=== PATIENT | female | born 1970 | race Hispanic/Latino ===

== ENCOUNTER 2018-07-03 09:13 | Emergency (ER) | payer OTHER, SELFPAY ==
--- NOTE | 2018-07-03 10:28 | EDPHYS ---
Physician Documentation [facility] Name: Carlene Powers Age: 47 yrs Sex: Female : 1970 Arrival Date: 07/03/2018 Time: 09:16 Bed 14 Private MD: To Cummins ED Physician Kelechi Byrd HPI: 07/03 09:35 This 47 yrs old Female presents to ER via Ambulatory with complaints of Back rn Pain. 09:35 The patient presents with pain that is acute. The symptoms are located in the low back. rn Onset: The symptoms/episode began/occurred yesterday. The pain radiates to the right leg and left leg. The problem was sustained from unknown cause. Modifying factors: The patient symptoms are alleviated by specific position, the patient symptoms are aggravated by any movement. Severity of symptoms: At their worst the symptoms were moderate, in the emergency department the symptoms are unchanged. The patient has not experienced similar symptoms in the past. 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 Worse with twisting, pressure, movement. . Historical: - Allergies: 09:25 No Known Allergies; ss - Home Meds: 09:25 metformin 500 mg oral tr24 2 tabs twice a day [Active]; Paxil 20 mg Oral tab 1 tab once ss daily [Active]; Xanax 0.5 mg Oral tab as needed [Active]; Victoza 1.2 daily [Active]; - PMHx: 09:25 Diabetes - NIDDM; ss - PSHx: 09:25 Cholecystectomy; ss - Immunization history:: Adult Immunizations up to date. - Social history:: Smoking status: Patient/guardian denies using tobacco. - Ebola Screening: : Patient denies exposure to infectious person Patient denies travel to an Ebola-affected area in the 21 days before illness onset. - Family history:: not pertinent. - Hospitalizations: : No recent hospitalization is reported. ROS: 09:35 Constitutional: Negative for fever, chills, and weight loss, Eyes: Negative for injury, rn pain, redness, and discharge, Neck: Negative for injury, pain, and swelling, Cardiovascular: Negative for chest pain, palpitations, and edema, Respiratory: Negative for shortness of breath, cough, wheezing, and pleuritic chest pain, Abdomen/GI: Negative for abdominal pain, nausea, vomiting, diarrhea, and constipation, Back: + low back pain, no injury : Negative for injury, bleeding, discharge, and swelling, MS/Extremity: Negative for injury and deformity, Skin: Negative for injury, rash, and discoloration, Neuro: Negative for headache, weakness, numbness, tingling, and seizure. Exam: 09:35 Constitutional: This is a well developed, well nourished patient who is awake, alert, rn appears uncomfortable, standing in room Head/Face: Normocephalic, atraumatic. Eyes: Pupils equal round and reactive to light, extra-ocular motions intact. Lids and lashes normal. Conjunctiva and sclera are non-icteric and not injected. Cornea within normal limits. Periorbital areas with no swelling, redness, or edema. ENT: MMM Abdomen/GI: soft, non-tender Back: No spinal tenderness. + pain with twisting motion, + tenderness bilateral lower perilumbar regions. Skin: Warm, dry with normal turgor. Normal color with no rashes, no lesions, and no evidence of cellulitis. MS/ Extremity: Pulses equal, no cyanosis. Neurovascular intact. Full, normal range of motion. Equal circumference. Neuro: Awake and alert, GCS 15, oriented to person, place, time, and situation. Cranial nerves II-XII grossly intact. Motor strength 5/5 in all extremities. Sensory grossly intact. Cerebellar exam normal. Normal gait. Vital Signs: 09:22 BP 150 / 85; Pulse 106; Resp 15; Temp 98.4(TE); Pulse Ox 98% on R/A; Weight 101.15 kg; ss Height 5 ft. 1 in. (154.94 cm); Pain 01/04; 09:22 Body Mass Index 42.14 (101.15 kg, 154.94 cm) ss MDM: 09:26 Patient medically screened. rn 10:26 Differential diagnosis: arthritis, Fatigue Osteoarthritis sprain, Ureterolithiasis rn radiculopathy. Data reviewed: vital signs, nurses notes, lab test result(s), urinalysis, UPT: and as a result, I will discharge patient. Counseling: I had a detailed discussion with the patient and/or guardian regarding: the historical points, exam findings, and any diagnostic results supporting the discharge/admit diagnosis, lab results, the need for outpatient follow up, to return to the emergency department if symptoms worsen or persist or if there are any questions or concerns that arise at home. Response to treatment: the patient's symptoms have mildly improved after treatment, and as a result, I will discharge patient. Special discussion: I discussed with the patient/guardian in detail that at this point there is no indication for admission to the hospital. It is understood, however, that if the symptoms persist or worsen the patient needs to return immediately for re-evaluation. ED course: Small amount of blood on UA, patient reports beginning of cycle and had sex last night, declines ct to rule out stone. . 07/03 10:17 Order name: Urine Dipstick--Ancillary (enter results); Complete Time: 10:46 bd 07/03 10:17 Order name: Urine --Ancillary (enter results); Complete Time: 10:46 bd 07/03 09:35 Order name: Urine Dipstick-Ancillary (obtain specimen); Complete Time: 10:08 rn 07/03 09:35 Order name: Urine Test (obtain specimen); Complete Time: 10:08 rn Administered Medications: 10:40 Drug: Decadron 10 mg Route: IM; Site: right deltoid; jl7 10:54 Follow up: Response: No adverse reaction jl7 10:40 Drug: TORadol 60 mg Route: IM; Site: right ventrogluteal; jl7 10:54 Follow up: Response: No adverse reaction [facility] Disposition: 07/03/18 10:27 Discharged to Home. Impression: Radiculopathy, lumbosacral region, Muscle spasm of back. - Condition is Stable. - Discharge Instructions: Lumbosacral Radiculopathy, Muscle Cramps and Spasms. - Prescriptions for Tylenol- Codeine #3 300-30 mg Oral Tablet - take 1 tablet by ORAL route every 6 hours As needed; 15 tablet. Cyclobenzaprine 10 mg Oral Tablet - take 1 tablet by ORAL route every 8 hours As needed; 20 tablet. Medrol (Vijay) 4 mg Oral Tablets, Dose Pack - take 1 tablet by ORAL route as directed - follow package instructions; 1 packet. - Medication Reconciliation Form, Thank You Letter, Antibiotic Education, Prescription Opioid Use form. - Follow up: Private Physician; When: As needed; Reason: Recheck today's complaints, Re-evaluation by your physician. - Problem is new. - Symptoms have improved. Signatures: Dispatcher [employer] [facility] Kelechi Byrd MD MD rn Smirch, Shelby, RN RN ss Kamryn Ramos RN RN jl7 Corrections: (The following items were deleted from the chart) 10:55 10:27 07/03/2018 10:27 Discharged to Home. Impression: Radiculopathy, lumbosacral jl7 region; Muscle spasm of back. Condition is Stable. Forms are Medication Reconciliation Form, Thank You Letter, Antibiotic Education, Prescription Opioid Use. Follow up: Private Physician; When: As needed; Reason: Recheck today's complaints, Re-evaluation by your physician. Problem is new. Symptoms have improved. rn
--- NOTE | 2018-07-03 10:28 | ER ---
Nurse's Notes [facility] Name: Carlene Powers Age: 47 yrs Sex: Female : 1970 Arrival Date: 07/03/2018 Time: 09:16 Bed 14 Private MD: To Cummins Diagnosis: Radiculopathy, lumbosacral region;Muscle spasm of back Presentation: 07/03 09:22 Presenting complaint: Patient states: low back and bilateral hip that began yesterday ss morning. Denies injury. Transition of care: patient was not received from another setting of care. Onset of symptoms was July 02, 2018. Risk Assessment: Do you want to hurt yourself or someone else? Patient reports no desire to harm self or others. Initial Sepsis Screen: Does the patient meet any 2 criteria? No. Patient's initial sepsis screen is negative. Does the patient have a suspected source of infection? No. Patient's initial sepsis screen is negative. Care prior to arrival: None. 09:22 Method Of Arrival: Ambulatory ss 09:22 Acuity: CINDY 4 ss Historical: - Allergies: 09:25 No Known Allergies; ss - Home Meds: 09:25 metformin 500 mg oral tr24 2 tabs twice a day [Active]; Paxil 20 mg Oral tab 1 tab once ss daily [Active]; Xanax 0.5 mg Oral tab as needed [Active]; Victoza 1.2 daily [Active]; - PMHx: 09:25 Diabetes - NIDDM; ss - PSHx: 09:25 Cholecystectomy; ss - Immunization history:: Adult Immunizations up to date. - Social history:: Smoking status: Patient/guardian denies using tobacco. - Ebola Screening: : Patient denies exposure to infectious person Patient denies travel to an Ebola-affected area in the 21 days before illness onset. - Family history:: not pertinent. - Hospitalizations: : No recent hospitalization is reported. Screenin:50 Abuse screen: Denies threats or abuse. Denies injuries from another. Nutritional jl7 screening: No deficits noted. Tuberculosis screening: No symptoms or risk factors identified. Fall Risk None identified. Assessment: 09:50 General: Appears in no apparent distress. uncomfortable, Behavior is calm, cooperative, jl7 appropriate for age. Pain: Complains of pain in left lower back and right lower back Pain currently is 8 out of 10 on a pain scale. Neuro: Level of Consciousness is awake, alert, obeys commands, Oriented to person, place, time, situation. Cardiovascular: Patient's skin is warm and dry. Respiratory: Airway is patent Respiratory effort is even, unlabored, Respiratory pattern is regular, symmetrical. GI: No signs and/or symptoms were reported involving the gastrointestinal system. : No signs and/or symptoms were reported regarding the genitourinary system. Denies burning with urination, inability to void, pain urinary frequency. EENT: No signs and/or symptoms were reported regarding the EENT system. Derm: Skin is pink, warm \T\ dry. Musculoskeletal: Range of motion: intact in all extremities. Vital Signs: 09:22 BP 150 / 85; Pulse 106; Resp 15; Temp 98.4(TE); Pulse Ox 98% on R/A; Weight 101.15 kg; ss Height 5 ft. 1 in. (154.94 cm); Pain 10; 09:22 Body Mass Index 42.14 (101.15 kg, 154.94 cm) ED Course: 09:16 Patient arrived in ED. rg4 09:16 To Cummins MD is Private Physician. rg4 09:19 Kelechi Byrd MD is Attending Physician. rn 09:23 Triage completed. ss 09:25 Arm band placed on left wrist. ss 09:27 Kamryn Ramos RN is Primary Nurse. jl7 09:50 Patient has correct armband on for positive identification. Placed in gown. Bed in low jl7 position. Call light in reach. Side rails up X 1. Pulse ox on. NIBP on. Warm blanket given. 09:50 Urine collected: clean catch specimen, clear. jl7 10:54 No provider procedures requiring assistance completed. Patient did not have IV access jl7 during this emergency room visit. Administered Medications: 10:40 Drug: Decadron 10 mg Route: IM; Site: right deltoid; jl7 10:54 Follow up: Response: No adverse reaction jl7 10:40 Drug: TORadol 60 mg Route: IM; Site: right ventrogluteal; jl7 10:54 Follow up: Response: No adverse reaction jl7 Outcome: 10:27 Discharge ordered by . rn 10:54 Discharged to home ambulatory. jl7 10:54 Condition: stable 10:54 Discharge instructions given to patient, Instructed on discharge instructions, follow up and referral plans. medication usage, Demonstrated understanding of instructions, follow-up care, medications, Prescriptions given X 3. 10:55 Patient left the ED. jl7 Signatures: Kelechi Byrd MD MD rn Smirch, Shelby, RN RN ss Garcia, Rubi rg4 Kamryn Ramos RN RN jl7 Corrections: (The following items were deleted from the chart) 10:48 10:46 TORadol 60 mg IM in right ventrogluteal jl7 jl7 10:48 10:47 Decadron 10 mg IM in right deltoid jl7 jl7
[2018-07-03] MEDS ORDERED: DEXAMETHASONE 10 MG/ML VIAL ONE (10:44)
[2018-07-03 10:45] LABS: Urine Blood 2+ (NEG); Urine Glucose 2+ (NEG); Urine Protein 1+ (NEG); Urine pH 5.5 (5.0-7.0)
[2018-07-03] MEDS ORDERED: KETOROLAC 30 MG/ML INJ ONE (10:45)
== END 2018-07-03 10:55 | disposition home or self-care (01) ==
LOC: ER 09:13
DX: M54.17 Radiculopathy, lumbosacral region (principal); M62.830 Muscle spasm of back; E11.9 Type 2 diabetes mellitus without complications
CPT/HCPCS: 81003; 81025; 96372; 99284; J1100

== ENCOUNTER 2020-06-02 15:27 | Emergency (ER) | payer OTHER | END 2020-06-02 15:39 | disposition left against medical advice (07) | LOC: ER 15:27 | DX: Z02.9 Encounter for administrative examinations, unspecified (principal) ==